=== PATIENT | male | born 1965 | race Caucasian/White ===

== ENCOUNTER 2017-01-04 09:17 | Day surgery (SDC) | payer OTHER ==
[2017-01-04] MEDS ORDERED: FENTANYL 100 MCG/2 ML VIAL ONE (10:20)
== END 2017-01-04 11:34 | disposition home or self-care (01) ==
LOC: SDS 09:17
PROVIDERS: ATTEND Internal Medicine Cardiovascular Disease
DX: I35.1 Nonrheumatic aortic (valve) insufficiency (principal); Q23.1 Congenital insufficiency of aortic valve; I51.7 Cardiomegaly; I71.2 Thoracic aortic aneurysm, without rupture; Z72.0 Tobacco use
CPT/HCPCS: 93312; 93321; 93325